=== PATIENT | male | born 1975 | race Caucasian/White ===

== ENCOUNTER 2024-01-06 10:16 | Outpatient (CLI) | payer OTHER ==
[2024-01-06 11:00] LABS: CREATININE SERUM 1.04 mg/dL (0.70-1.30)
== END 2024-01-06 10:30 | disposition home or self-care (01) ==
LOC: LAB 10:16
PROVIDERS: ATTEND Urology
DX: R31.0 Gross hematuria (principal)

== ENCOUNTER 2024-01-06 11:41 | Outpatient (CLI) | payer OTHER | END 2024-01-06 11:49 | disposition home or self-care (01) | LOC: TOM 11:41 | PROVIDERS: ATTEND Urology | DX: R31.0 Gross hematuria (principal); N41.1 Chronic prostatitis ==